=== PATIENT | male | born 1945 | race Caucasian/White ===

== ENCOUNTER 2018-11-29 22:14 | Inpatient (IN) ==
[2018-11-29] MEDS ORDERED: ASPIRIN PO ONE (22:28)
[2018-11-29] MEDS ORDERED: ASPIRIN PR ONE (22:28)
--- NOTE | 2018-11-29 22:48 | PROVIDER DOCUMENTATION ---
HPI-General Adult - General Chief Complaint: Shortness of Breath Stated Complaint: CHEST PAIN/SOB/ NECK PAIN Time Seen by Provider: 11/29/18 22:32 Source: patient Allergies/Adverse Reactions: Patient Allergies Allergy/AdvReac Type Severity Reaction Status Date / Time Penicillins Allergy Unknown Verified 08/23/18 10:37 Home Medications: Home Medication List Medication Instructions Recorded Confirmed Last Taken Type Aspirin 81 mg PO DAILY 02/14/15 08/23/18 10/09/16 History Atorvastatin Calcium [Lipitor] 20 mg PO DAILY #90 tab 08/26/18 Unknown Rx Fluticasone/Vilanterol [Breo 1 ea IH DAILY #1 aer.pow.ba 08/26/18 Unknown Rx Ellipta Inhaler] Levofloxacin [Levaquin] 500 mg PO DAILY #10 tab 08/26/18 Unknown Rx Methylprednisolone [Medrol Dosepak] 4 mg PO DIRECTED #1 pkg 08/26/18 Unknown Rx Phenylephrine/Acetaminophen/Cp 1 ea PO TID #30 tab 08/26/18 Unknown Rx [Norel Ad Tablet] Tiotropium [place] Inhaler 1 puff INH RTDAILY #30 inhaler 08/26/18 Unknown Rx [Spiriva] Azithromycin 250 mg PO DAILY 4 Days #4 tab 11/30/18 Unknown Rx Prednisone 40 mg PO DAILY 4 Days #4 tab 11/30/18 Unknown Rx - History of Present Illness -Gen Adult Nature of Presenting Problems: THIS IS A 73 YEAR OLD MALE WITH MEDICAL HISTORY OF COPD AND ALSO 3 VESSELS CABG CAME IN TODAY WITH MULTIPLE COMPLAINTS. 1. CHEST PAIN "SHARP" STARTED LAST WEEK. NOTHING MAKES IT WORSE. SITTING MAKES IT BETTER. STATES IT RADIATES TO THE BACK. 2. SOB STARTED THIS MORNING WITH WHITE PRODUCTIVE COUGH. Review of Systems - Adult - REVIEW OF SYSTEMS - ADULT ROS:: unobtainable per condition Constitutional: reports: no symptoms reported, see HPI Eyes: reports: no symptoms reported, see HPI Ears, Nose, Mouth & Throat: reports: no symptoms reported, see HPI Cardiovascular: reports: chest pain (SHAPR STARTED LAST WEEK) Respiratory: reports: cough, shortness of breath Gastrointestinal: reports: no symptoms reported, see HPI Genitourinary: reports: no symptoms reported, see HPI Musculoskeletal: reports: no symptoms reported, see HPI Integumentary: reports: no symptoms reported, see HPI Neurological: reports: no symptoms reported, see HPI Psychiatric: reports: no symptoms reported, see HPI Endocrine: reports: no symptoms reported, see HPI Hematologic/Lymphatic: reports: no symptoms reported, see HPI Allergic/Immunologic: reports: no symptoms reported, see HPI Past History - Adult - PAST MEDICAL HISTORY-ADULT Review of Records: reports: Old Records Reviewed Major Childhood Illnesses: reports: denies history Cardiovascular: reports: A-Fib, CAD, hyperlipidemia Respiratory: reports: COPD Gastrointestinal: reports: denies history Genitourinary: reports: denies history Musculoskeletal: reports: denies history Neurological: reports: denies history Endocrine/Immune: reports: denies history Other Conditions: reports: denies history - PRIOR SURGERIES/PROCEDURES Surgical/Procedure History: reports: CABG (04/2015), other (deviated septum) - IMMUNIZATION STATUS Childhood Immunizations: See Nurse Assessment Flu Vaccine: See Nurse Assessment - FAMILY HISTORY Family History: reviewed, not pertinent Physical Exam-General - PHYSICAL EXAM-ADULT Initial Vital Signs Reviewed: Yes - CONSTITUTIONAL General Appearance: appears well, alert, no apparent distress - EYES Eyes: PERRL/EOMI - HEAD, EARS, NOSE, MOUTH & THROAT HENMT: normocephalic/atraumatic, moist mucous membranes, normal ENT inspection - NECK Neck: non-tender, full range of motion, supple - RESPIRATORY Respiratory: chest non-tender, lungs clear, normal breath sounds, no pleuratic chest pain, no respiratory distress, no accessory muscle use - CARDIOVASCULAR Cardiovascular: normal peripheral pulses, regular rate, rhythm, no edema, no gallop, no JVD, no murmur - GASTROINTESTINAL (ABDOMEN) Abdominal Exam: normal bowel sounds, non tender, soft - MUSCULOSKELETAL Back Exam: normal inspection, no CVA tenderness, no vertebral tenderness Extremity: normal range of motion, non-tender, normal gait, normal inspection - SKIN Integumentary: normal color, normal turgor - NEUROLOGIC Neurologic: grossly normal - PSYCHIATRIC Psych/Mental Status: normal mood/affect, normal thought content, normal thought process, oriented x 3 Progress - PLAN OF CARE/RESULTS Progress/Plan/Lab Results: Vital Signs - 8 hr 11/29/18 22:21 Temperature 98.4 F Pulse Rate 93 H Respiratory Rate 24 Blood Pressure 138/64 O2 Sat by Pulse Oximetry 88 L Orders Category Date Time Status Cardiac Monitoring DIRECTED Care 11/29/18 22:29 Active Oxygen Therapy- ED Nursing DIRECTED Care 11/29/18 22:29 Active Saline Loc NOW Care 11/29/18 22:29 Active CHEST-2 VIEWS [RAD] Stat Exams 11/29/18 22:29 Ordered CBC WITH ELECTRONIC DIFF [HEME] Stat Lab 11/29/18 22:29 Uncollected CK PROFILE [SP CHEM] Stat Lab 11/29/18 22:29 Uncollected COMPREHENSIVE METABOLIC PANEL [CHEM] Stat Lab 11/29/18 22:29 Uncollected PRO B-NATRIURETIC PEPTIDE Stat Lab 11/29/18 22:29 Uncollected PROTIME WITH INR [COAG] Stat Lab 11/29/18 22:29 Uncollected PTT [COAG] Stat Lab 11/29/18 22:29 Uncollected TROPONIN T Stat Lab 11/29/18 22:29 Uncollected Aspirin Med 11/29/18 22:28 Discontinued 300 mg AL NOW ONE Aspirin Med 11/29/18 22:28 Discontinued 325 mg PO NOW ONE CP/SOB/Palp >45 yrs of Age Stat Oth 11/29/18 22:28 Ordered EKG [EKG] Stat Ther 11/29/18 22:29 Ordered Result Diagrams: 11/29/18 22:47 11/29/18 22:47 - REASSESSMENT Reassessment #1 Time Reassessed: 23:54 Status: other (STILL PENDING CXR.) Reassessment #2 Time Reassessed: 01:05 Status: other (PENDING REPEAT TROPONIN) Reassessment #3 Status: other (STILL PENDING TROPONIN; PER CHARGE NURSE, NOT DRAWN YET AND TECH WILL DRAW.) Reassessment #4 Time Reassessed: 02:14 Status: other (REPEAT TROP >2 H NEGATIAVE; [id number]. WILL TREAT WITH ZPACK AND STEROID FOR COPD.) - EKG 1 Time of EKG reading by physician:: 22:34 EKG Read and Signed by:: Mario Moise EKG Interpretation (*Must complete 3 of following elements*): Normal Rate: 86 Rhythm: NORMAL SINUS RHYTHM [place]: normal QRS: normal [place] Interval: normal ST Wave: normal 2 Time of EKG reading by physician:: 23:29 EKG Read and Signed by:: Mario Moise EKG Interpretation (*Must complete 3 of following elements*): Normal Rate: 80 Rhythm: NORMAL SINUS RHYTHM [place]: normal QRS: normal [place] Interval: normal ST Wave: normal Departure - Departure Date of Disposition Decision: 11/30/18 Time of Disposition Decision: 02:16 DIAGNOSIS: COPD exacerbation Disposition: HOME 01 Certified Medical Emergency: Emergent Condition: Stable Additional Freetext Instructions: ED Follow Up Instructions: You have been treated by a care provider in the Emergency Department. These instructions are being provided to you so you can have an understanding of how to care for yourself upon discharge. Upon discharge from the Emergency Department, you are responsible for making arrangements for follow-up care by a physician of your choice. Take all prescribed medications as directed. Return to the Emergency Department immediately for any new or worsening symptoms. You may call the Physician Referral phone number at [phone] to obtain a list of Physicians who are taking new patients. Prescriptions: Azithromycin 250 mg PO DAILY 4 Days #4 tab Prednisone 40 mg PO DAILY 4 Days #4 tab Referrals and Follow-Ups: Pankaj Nation MD [Primary Care Provider] - - Critical Care Note This patient required my direct & personal management of CC.: No Attestation - Physician/ NELLIE Attestation Patient care was provided by Advanced Practice Provider:: No The physician spent face to face time with patient:: Yes Advanced Practice Provider documentation review:: Supervising physician onsite and consulted in the evaluation and care of this patient. The physician did have a face to face encounter with the patient.
[2018-11-29] MEDS ORDERED: DUONEB (A & A) INH ONE (23:14)
[2018-11-29 23:19] LABS: BASO# 0.02 X1000 (0.0-0.2); BASO% 0.3 % (0.0-0.8); EOS# 0.21 X1000 (0.0-0.7); EOS% 2.9 % (0.0-10.0); HEMATOCRIT 49.5 % (42.0-52.0); HEMOGLOBIN 15.8 g/dL (14.0-18.0); IMM GRAN# 0.02 X1000 (0.0-0.04); IMM GRAN% 0.3 % (0.0-0.5); INR 0.93; LYMPH# 1.11 X1000 (1.2-3.4); LYMPH% 15.2 % (20.5-51.1); MCH 28.8 PG (27-31); MCHC 31.9 g/dL (33-37); MCV 90.2 FL (81-99); MONO# 0.76 X1000 (0.11-0.59); MONO% 10.4 % (1.7-9.3); MPV 11.1 FL (7.4-10.4); NEUT# 5.18 X1000 (1.4-6.5); NEUT% 70.9 % (42.2-75.2); PLT 86 X1000 (130-400); PROTIME 13.2 Seconds (11.0-16.0); RBC 5.49 XMIL (4.7-6.1); RDW 15.7 % (11.5-14.5)
[2018-11-29 23:20] LABS: PTT 30.3 Seconds (22.3-41.8)
[2018-11-29 23:33] LABS: AGAP 13; ALB/GLOB RATIO 1.3; ALKALINE PHOSPHATASE 44 U/L (32-122); BUN 11 mg/dL (8-22); CALCIUM 8.9 mg/dL (8.8-10.2); CHLORIDE 97 mmol/L (98-107); CK PROFILE 41 U/L (24-204); COSMO 271; CREATININE 0.6 mg/dL (0.7-1.2); ESTIMATED GFR > 60; GLUCOSE 128 mg/dL (70-104); GOT 15 U/L (10-34); GPT 14 U/L (10-44); POTASSIUM 3.9 mmol/L (3.5-5.1); SODIUM 135 mmol/L (136-145); TCO2 25 mmol/L (25-35); TOTAL BILIRUBIN 0.58 mg/dL (0.20-1.00)
[2018-11-29] MEDS ORDERED: NITROGLYCERIN SL PRN (23:34)
[2018-11-29] MEDS ORDERED: MORPHINE IV ONE (23:34)
[2018-11-30] MEDS ORDERED: DUONEB (A & A) INH ONE ×2 (01:51→03:39)
[2018-11-30] MEDS ORDERED: ZITHROMAX PO ONE (02:13)
[2018-11-30] MEDS ORDERED: PREDNISONE PO ONE (02:13)
[2018-11-30] MEDS ORDERED: NICODERM PATCH TD ONE (06:22)
--- NOTE | 2018-11-30 06:29 | Diag Imaging Result Doc PS360 ---
CHEST-1 VIEW - 11/29/2018 INDICATION: CP, SOB COMPARISON: 08/23/2018 FINDINGS: Stable sternotomy wires. Stable hazy opacity in the right midlung laterally. Stable increased markings in the lung bases suggesting mild scarring or fibrosis. Heart size is top normal. IMPRESSION: No change from prior. Electronically signed by Sebastien Arguelles 11/30/2018 6:26 AM
[2018-11-30] MEDS: DUONEB (A & A) INH SCH ×5 (07:30→23:55)
[2018-11-30] MEDS: ROCEPHIN 1 GM in NS 50 ML IV SCH (07:33)
[2018-11-30] MEDS ORDERED: ZOFRAN IV PRN (07:34)
--- NOTE | 2018-11-30 07:42 | EKG Report ---
Test Performed on : 11/29/2018 10:34:07 PM Test Reason : CP. SOB Blood Pressure : / mmHG Vent. Rate : 086 BPM Atrial Rate : 086 BPM P-R Int : 138 ms QRS Dur : 092 ms QT Int : 378 ms P-R-T Axes : 031 032 091 degrees QTc Int : 452 ms Normal sinus rhythm. Inferior infarct (cited on or before 13-FEB-2015) Abnormal ECG When compared with ECG of 24-AUG-2018 07:07, Questionable change in initial forces of Inferior leads Unconfirmed Result
--- NOTE | 2018-11-30 07:43 | EKG Report ---
Test Performed on : 11/29/2018 11:29:03 PM Test Reason : CP Blood Pressure : / mmHG Vent. Rate : 080 BPM Atrial Rate : 080 BPM P-R Int : 140 ms QRS Dur : 092 ms QT Int : 364 ms P-R-T Axes : 045 028 086 degrees QTc Int : 419 ms Normal sinus rhythm. Possible Inferior infarct , age undetermined Abnormal ECG No previous ECGs available Unconfirmed Result
[2018-11-30 08:21] LABS: BASO# 0.02 X1000 (0.0-0.2); BASO% 0.4 % (0.0-0.8); EOS# 0.02 X1000 (0.0-0.7); EOS% 0.4 % (0.0-10.0); HEMATOCRIT 48.8 % (42.0-52.0); HEMOGLOBIN 15.7 g/dL (14.0-18.0); IMM GRAN# 0.02 X1000 (0.0-0.04); IMM GRAN% 0.4 % (0.0-0.5); MCH 29.1 PG (27-31); MCHC 32.2 g/dL (33-37); MCV 90.4 FL (81-99); MONO# 0.28 X1000 (0.11-0.59); MONO% 5.6 % (1.7-9.3); MPV 10.8 FL (7.4-10.4); NEUT# 4.08 X1000 (1.4-6.5); NEUT% 81.2 % (42.2-75.2); PLT 113 X1000 (130-400); RDW 15.7 % (11.5-14.5); WBC 5.02 X1000 (4.8-10.8)
--- NOTE | 2018-11-30 08:29 | HISTORY AND PHYSICAL ---
PRIMARY CARE PROVIDER: Dr. Nation CHIEF COMPLAINT: Shortness of breath. HISTORY OF PRESENT ILLNESS: Mr. Pérez is a 73-year-old male with a past medical history most notable for COPD, coronary artery disease, nicotine dependence, and chronic sinus problems. The patient reports that on , he did have a sinus surgery with Dr. Santacruz. Secondary to this, he has been instructed not to take his aspirin until cleared by Dr. Santacruz. He was reportedly supposed to have an appointment with Dr. Santacruz today at 3:30 to have some nasal packing removed. The patient states that since , he has had worsening shortness of breath. The patient states this steadily progressed though last night, he states that he became very short of breath and felt like he could not catch his breath at all. He also has reported a productive cough with clear sputum, though he states he does keep the chronic cough and that this is only slightly worsened. The patient has also reported fever, body aches and chills. The patient also reported headache and blurry vision yesterday, though he states this has subsided at this time. He has reported some intermittent chest pain though states this has been ongoing for awhile. The patient states that the pain is sharp in nature and does begin when his shortness of breath worsens or he coughs. He states it does radiate into his back between his shoulder blades, though he is denying any chest pain at this time. He denies any abdominal pain, nausea, vomiting, or diarrhea. He denies any hematochezia or melena. He denies any dysuria or urinary frequency. He also denies any pain, numbness, tingling or swelling in extremities. Upon evaluation in the ER, the patient did not have elevated white blood cell count. Chemistries are pretty unremarkable. CK and troponins have been negative. EKG showed normal sinus rhythm at a rate of 80 with a QTC of 419, though chest x-ray did appear to have a hazy opacity in the right mid to lower lung. Upon auscultation, the patient did have expiratory wheezing noted in bilateral full zacarias. He also did have coarse rhonchi noted and did sound very tight. The patient does not normally wear oxygen at home and was only maintaining oxygen saturations on room air of 88%. This does improve with oxygen nasal cannula at 2 liters to 94%, though given his history, reported symptoms, as well as hypoxia, he will be admitted for further treatment and evaluation. REVIEW OF SYSTEMS: A 14-point review of systems was conducted with the patient and all were negative except for pertinent positives mentioned above in HPI. PAST MEDICAL HISTORY: 1. COPD. 2. Coronary artery disease, status post 3 vessel coronary artery bypass graft. 3. Depression. 4. Metabolic syndrome. 5. Gout. 6. Glucose intolerance. 7. Nicotine dependency. 8. Peripheral vascular disease with bilateral superficial small artery stenosis. 9. Vitamin B12 deficiency. 10.Chronic sinusitis. PAST SURGICAL HISTORY: 1. Uvulopalatopharyngoplasty. 2. Septoplasty. 3. Coronary artery bypass graft. 4. Right lung biopsy which was reportedly benign. 5. Right knee replacement. 6. Recent sinus surgery [address] Santacruz. SOCIAL HISTORY: The patient is and has been so for 30 years. His is an employee at [employer]. They do have 3 children. He does work with heating and cooling units. He lives in [place]. He does have a long history of smoking in which he smokes 1-1/2 to 2 packs per day for approximately 40 years. The patient states he previously used to drink beer though has not had any alcohol in 5 years. There is no reported history of illicit drug use. FAMILY HISTORY: Positive for his father dying of a myocardial infarction at 88. His mother of complications secondary to a broken hip. ALLERGIES: The patient reports allergy to penicillin. HOME MEDICATIONS: 1. Aspirin 81 mg p.o. daily. 2. Atorvastatin 20 mg p.o. nightly. 3. Breo Ellipta inhaler 1 puff inhaled daily. 4. Spiriva 1 puff inhaled daily. DIAGNOSTIC DATA/LABORATORY RESULTS: White blood cell count 7300, hemoglobin 15.8, hematocrit 49.5, platelet count 86. PT 13.2, INR 0.93, PTT 30.3. D-dimer is 0.57. Sodium 135, potassium 3.9, chloride 97, serum bicarb 25, BUN 11, creatinine 0.6 with a GFR greater than 60. Glucose 128, calcium 8.9. Liver function tests within normal limits. CK 41, troponin less than 0.01. ProBNP 238. Plasma lactate 1.1. EKG showed normal sinus rhythm at a rate of 80 with a QTC of 419. Chest x-ray was concerning for possible opacity in the left mid to lower lung though we are awaiting for official radiology over read. PHYSICAL EXAMINATION: VITAL SIGNS: Temperature 98.4, heart rate 67, respirations 20, blood pressure 133/75, oxygen saturation is 92% on nasal cannula at 2 liters. GENERAL: Mr. Pérez is a very pleasant 73-year-old male. He is resting on the ER stretcher. He is in no acute distress. He was awake, alert, and able to answer all questions appropriately. HEENT: Head is atraumatic, normocephalic. Pupils are equal, round and reactive to light. Oral mucosa is moist. Oropharynx clear. NECK: Supple. Trachea midline. CARDIOVASCULAR: The patient has normal S1 and S2. No murmurs, gallops or rubs appreciated. Regular rate and rhythm. PULMONARY: The patient has symmetrical chest expansion bilaterally. Lungs sounds in bilateral full zacarias did have expiratory wheezing noted as well as rhonchi. ABDOMEN: Soft, nontender, does not appear to be distended. The patient has a slightly protuberant abdomen noted. Bowel sounds were present in all four quadrants and were normoactive. EXTREMITIES: No cyanosis, clubbing or edema noted. Pulse, motor and sensory were intact in all extremities. Radial pulses and pedal pulses were 2+ bilaterally. Capillary refill is less than 3. INTEGUMENTARY: The patient's skin is pink, warm, and dry. NEUROLOGIC: The patient is alert and oriented to person, place, time, and situation. There does not appear to be focal neurological deficits noted. ASSESSMENT AND PLAN: 1. Chronic obstructive pulmonary disease exacerbation. For treatment of this, we will place the patient with scheduled DuoNeb treatments. We will implement IV steroids with Solu-Medrol 40 mg IV q.12 hours. We have gone ahead and placed the patient with antibiotic coverage of Rocephin and azithromycin given his reported symptoms of shortness of breath, cough, as well as fever, body aches, and chills. Blood cultures and sputum culture have been ordered. Will continue with aggressive pulmonary toilet, incentive spirometry, and oxygen supplementation. Will continue to monitor respiratory status closely. 2. Status post sinus surgery with Dr. Santacruz 4 days ago. The patient does reportedly have an appointment today with Dr. Santacruz at 3:30 for removal of some nasal packing. He has reported that he has also been using a nasal spray and that the drainage has been clear though did have an odor. Given this, we will continue with antibiotic as mentioned above of Rocephin given that he has reported fever, body aches and chills. We will continue to hold his aspirin at this time until he is cleared with Dr. Santacruz. We have placed a consult with Dr. Santacruz and will await his evaluation and further recommendations for management. 3. Coronary artery disease, status post coronary artery bypass graft. We are holding his aspirin at this time but once he is cleared by Dr. Santacruz, we can restart his regular aspirin regimen. 4. Nicotine dependence. The patient has been given smoking cessation teaching. We will continue to provide smoking cessation education throughout his admission and upon discharge. We have placed orders for a nicotine patch. 5. Deep venous thrombosis prophylaxis will be provided with sequential compression devices. The patient has been placed on the medical floor with telemetry. He will have vital signs q.6 hours and do strict intake and output, incentive spirometry. He will be on a heart healthy diet. Will repeat a CBC, BMP, and troponin in the morning. The patient's D-dimer was slightly elevated at 0.57 though according to the Wells score for pulmonary embolism, he only scores a 1.5 given his recent history of surgery. We will continue to follow. Further orders and recommendations pending hospital course, diagnostic studies , and physician evaluation. Dictated by SERENA Dixon for Travon Ernst MD cc: Travon Ernst MD
[2018-11-30 08:38] LABS: AGAP 10; BUN 9 mg/dL (8-22); CALCIUM 8.8 mg/dL (8.8-10.2); CHLORIDE 98 mmol/L (98-107); COSMO 271; CREATININE 0.6 mg/dL (0.7-1.2); ESTIMATED GFR > 60; GLUCOSE 135 mg/dL (70-104); POTASSIUM 4.5 mmol/L (3.5-5.1); SODIUM 135 mmol/L (136-145); TCO2 27 mmol/L (25-35)
[2018-11-30] MEDS ORDERED: NITROGLYCERIN TOP ONE (08:59)
[2018-11-30] MEDS ORDERED: ASPIRIN PO SCH (09:00)
[2018-11-30] MEDS ORDERED: ASPIRIN ONE (09:06)
[2018-11-30] MEDS: BREO ELLIPTA 100/25 MCG INH INH SCH (11:35)
[2018-11-30] MEDS: SOLU-MEDROL IV SCH (13:48)
[2018-11-30] MEDS: TORADOL IV PRN (15:59)
[2018-11-30] MEDS: LIPITOR PO SCH (20:20)
[2018-12-01] MEDS: SOLU-MEDROL IV SCH ×2 (01:39→13:16)
[2018-12-01] MEDS: ZITHROMAX 500 MG/NS 500 MG/250 ML IVPB IV SCH (01:39)
[2018-12-01] MEDS: DUONEB (A & A) INH SCH ×6 (03:22→23:20)
[2018-12-01] MEDS: TORADOL IV PRN ×3 (06:17→20:02)
[2018-12-01] MEDS: ROCEPHIN 1 GM in NS 50 ML IV SCH (06:17)
[2018-12-01] MEDS: SPIRIVA INH SCH (07:57)
[2018-12-01] MEDS: BREO ELLIPTA 100/25 MCG INH INH SCH (07:59)
[2018-12-01] MEDS: ASPIRIN PO SCH (08:55)
[2018-12-01] MEDS: MAXIPIME 1 GM in NS 50 ML IV SCH ×2 (09:33→20:03)
[2018-12-01] MEDS: AYR NASAL SPRAY NAS SCH ×7 (10:31→22:45)
[2018-12-01] MEDS: NICODERM PATCH TD SCH (14:18)
--- NOTE | 2018-12-01 19:29 | PROGRESS NOTE ---
DATE: 12/01/2018 SUBJECTIVE: A 73-year-old white male admitted to the hospital yesterday for shortness of breath, cough, wheezing, interscapular pain. The patient is well known to me from the previous admissions. Events noted. I appreciate Dr. Santacruz's follow-up. He performed sinus surgery, grew Pseudomonas. It is sensitive to all cephalosporins. PAST MEDICAL HISTORY: Reviewed. PAST SURGICAL HISTORY: Reviewed. MEDICINES: Reviewed. ALLERGIES: Penicillin. REVIEW OF SYSTEMS: Cough shortness of breath, and wheezing. Rest of the review of systems are normal. PHYSICAL EXAMINATION: Vital Signs: Temperature is 98 degrees, pulse is 89, blood pressure is 124 x 60. 3 L nasal cannula 94%. HEENT: Within normal limits. Neck: Supple. No lymphadenopathy. Chest: Bilateral expiratory wheezing. Heart: Sounds are regular. Abdomen: Belly is soft, nontender. No obvious neurological deficits. INVESTIGATIONS: CBC: White cell count 5, hematocrit 48, platelets 113,000. SMA 7 is normal and cardiac enzymes were negative. ProBNP was normal. ASSESSMENT AND PLAN: 1. Acute chronic obstructive pulmonary disease exacerbation. Plan is continue on oxygen, bronchodilators. Intravenous steroids. 2. Tobacco abuse. Nicotine patch. 3. Interscapular pain. EKG is normal. Status post bypass. Cardiac enzymes were negative. Continue on Toradol as needed. 4. Hyperlipidemia on Lipitor and continue on aspirin for underlying coronary artery disease. 5. Acute maxillary sinusitis. Status post sinus surgery with Pseudomonas. Change the antibiotics to IV cefepime and will reassess for the evaluation for home oxygen. 6. Nicotine cessation programs. 7. Right lower lobe spiculated lesion. Previous biopsy was negative. We will continue to monitor with outpatient PET scan if things do not get better. LEVEL OF DOCUMENTATION: 35 minutes. cc: Blake Nation MD
[2018-12-01] MEDS: LIPITOR PO SCH (20:01)
[2018-12-02] MEDS: AYR NASAL SPRAY NAS SCH ×12 (01:44→22:45)
[2018-12-02] MEDS: ZITHROMAX 500 MG/NS 500 MG/250 ML IVPB IV SCH (01:44)
[2018-12-02] MEDS: SOLU-MEDROL IV SCH ×2 (01:44→14:12)
[2018-12-02] MEDS: DUONEB (A & A) INH SCH ×6 (03:12→23:38)
[2018-12-02] MEDS: TORADOL IV PRN ×4 (04:23→22:18)
[2018-12-02] MEDS: SPIRIVA INH SCH (07:33)
[2018-12-02] MEDS: BREO ELLIPTA 100/25 MCG INH INH SCH (07:33)
[2018-12-02] MEDS: NICODERM PATCH TD SCH (09:49)
[2018-12-02] MEDS: MAXIPIME 1 GM in NS 50 ML IV SCH ×2 (09:49→20:05)
[2018-12-02] MEDS: ASPIRIN PO SCH (09:49)
--- NOTE | 2018-12-02 10:12 | Diag Imaging Result Doc PS360 ---
C-SPINE COMPLET FLEX/EXTENSION - 12/02/2018 INDICATION: neck pain TECHNIQUE: Three views COMPARISON: None FINDINGS: There is no fracture or subluxation. There is some sort of amorphous dense material projecting in the precervical soft tissue at the level of the epiglottis. There is mild multilevel degenerative disc disease. No abnormal motion on flexion or extension. IMPRESSION: Nonspecific findings. Electronically signed by Sebastien Arguelles 12/02/2018 10:10 AM
[2018-12-02] MEDS: MIRALAX PO SCH (10:36)
--- NOTE | 2018-12-02 20:01 | PROGRESS NOTE ---
DATE: 12/02/2018 SUBJECTIVE: Patient has complaints of left interscapular pain. Sputum cultures grew Pseudomonas aeruginosa. PHYSICAL EXAMINATION: Vital Signs: Temp is 98. Vitals are stable. HEENT: Within normal limits. Neck: Supple. Chest: Clear. Lungs: Scattered wheezing. Cardiovascular: Distant heart sounds. Abdomen: Belly is soft, nontender. Neurologic: No neurological deficits. INVESTIGATIONS: Sputum Pseudomonas aeruginosa. Blood cultures were negative. ASSESSMENT AND PLAN: 1. Acute chronic obstructive pulmonary disease exacerbation due to Pseudomonas bronchitis and sinusitis. Continue on IV cefepime, IV steroids and bronchodilators. 2. Left interscapular pain. We will check the x-rays of C-spine. 3. Right lung opacity, spiculated lesion. Previous biopsy negative. 4. Tobacco abuse, quit smoking. Continue present treatment. LEVEL OF DOCUMENTATION: 25 minutes. cc: Blake Nation MD
[2018-12-02] MEDS: LIPITOR PO SCH (20:05)
[2018-12-03] MEDS: AYR NASAL SPRAY NAS SCH ×12 (00:45→23:51)
[2018-12-03] MEDS: ZITHROMAX 500 MG/NS 500 MG/250 ML IVPB IV SCH (02:09)
[2018-12-03] MEDS: SOLU-MEDROL IV SCH ×2 (02:09→15:40)
[2018-12-03] MEDS: DUONEB (A & A) INH SCH ×6 (03:33→23:00)
[2018-12-03] MEDS: TORADOL IV PRN ×2 (05:17→11:56)
[2018-12-03] MEDS: MIRALAX PO SCH (08:18)
[2018-12-03] MEDS: ASPIRIN PO SCH (08:18)
[2018-12-03] MEDS: MAXIPIME 1 GM in NS 50 ML IV SCH ×2 (08:18→22:21)
[2018-12-03] MEDS: NICODERM PATCH TD SCH (08:18)
[2018-12-03] MEDS: BREO ELLIPTA 100/25 MCG INH INH SCH (08:36)
[2018-12-03] MEDS: SPIRIVA INH SCH (08:36)
--- NOTE | 2018-12-03 09:28 | Diag Imaging Result Doc PS360 ---
EXAM: CT THORAX W/CONTRAST 12/03/2018 HISTORY: right Lower lobe spiculated lesion TECHNIQUE: This exam was performed using automated exposure control, adjustment of mA or kV according to patient size, and/or use of iterative reconstruction technique. COMMENT: The current examination is compared with the previous study of 12/01/2017. There is severe emphysematous change. The spiculated somewhat cavitary lesion present in the lower portion of the right upper lobe which was described at the time the previous examination is again noted. This is slightly larger in some dimensions than on the previous examination, although comparison is difficult due to differences in slice position and the irregular shape of the mass. The greatest axial extent is measured at 2.9 cm versus just under 2.9 cm on the previous examination. A short axis dimension of a posterior lobe of the lesion measures almost 11 mm on the current study versus 9 mm on the previous exam. There are some linear opacities in the inferior portion of the upper lobe anteriorly which were not present previously and are probably related to atelectasis. There are some similar opacities in the inferior lingula which were present previously and are likely fibrotic. There are linear opacities in both lower lobes posteriorly the majority of which were not present previously and are probably also atelectatic. There is a somewhat flat pleural-based opacity posteriorly in the left apex around image 26. There is a more nodular lesion on the previous examination, and there is some apparent enhancement within this area of pleural thickening or pleural-based opacity. It is at least 2.5 cm in axial dimension. The appearance of the mediastinum and obi has not changed significantly since the previous examination. The adrenal glands are not enlarged and the appearance of the visualized portion of the abdomen has not changed. There are spondylotic changes in the lumbar and thoracic spine. There has been previous sternotomy. IMPRESSION: 1. Right upper lobe irregular spiculated lesion which has not increased dramatically in size since the previous examination of 12/01/2017. Some increase in overall volume cannot be excluded however. 2. Enlarged pleural-based lesion in the posterior left apex. 3. Bibasilar atelectasis. Electronically signed by Marlon Demarco 12/03/2018 9:25 AM
[2018-12-03] MEDS: DILAUDID IV PRN ×2 (18:05→22:33)
[2018-12-03] MEDS: LIPITOR PO SCH (22:21)
--- NOTE | 2018-12-04 00:04 | PROGRESS NOTE ---
DATE: 12/03/2018 SUBJECT: The patient complains of intractable left interscapular pain x-ray C-spine spondylosis and continues to cough and congestion. Sputum cultures grew Pseudomonas aeruginosa. Blood cultures were negative. OBJECTIVE: Temperature is 98 degrees, vitals are stable.HEENT: Within normal limits. Neck: Supple. No lymphadenopathy. Chest: Air entry, some pleurisy on the left side noted. Heart: Sounds are regular. Belly: Is soft, nontender. No obvious neurological deficits. ASSESSMENT AND PLAN: 1. Acute chronic obstructive pulmonary disease exacerbation with Pseudomonas aeruginosa. Continue on IV cefepime. 2. Left interscapular pain. Followup CT of the chest showed 2.4 cm mass pleural based noted and will schedule for CT-guided biopsy on Thursday. 3. Tobacco abuse. Nicotine patches. 4. Coronary artery disease stable. Discussed the plan of care with the family at bedside. LEVEL OF DOCUMENTATION: 25 minutes. cc: Blake Nation MD
[2018-12-04] MEDS: ZITHROMAX 500 MG/NS 500 MG/250 ML IVPB IV SCH (03:14)
[2018-12-04] MEDS: SOLU-MEDROL IV SCH ×2 (03:14→14:53)
[2018-12-04] MEDS: DILAUDID IV PRN ×6 (03:14→22:01)
[2018-12-04] MEDS: DUONEB (A & A) INH SCH ×6 (03:30→23:10)
[2018-12-04] MEDS: AYR NASAL SPRAY NAS SCH ×9 (05:15→17:59)
[2018-12-04] MEDS: SPIRIVA INH SCH (08:07)
[2018-12-04] MEDS: BREO ELLIPTA 100/25 MCG INH INH SCH (08:07)
[2018-12-04] MEDS: MAXIPIME 1 GM in NS 50 ML IV SCH ×2 (08:39→22:02)
[2018-12-04] MEDS: ASPIRIN PO SCH (08:39)
[2018-12-04] MEDS: NICODERM PATCH TD SCH (08:39)
[2018-12-04] MEDS: MIRALAX PO SCH (08:39)
--- NOTE | 2018-12-04 12:38 | PROGRESS NOTE ---
DATE: 12/04/2018 SUBJECTIVE: Mr. Pérez is a 73-year-old white gentleman, who has some shortness of breath. His sputum grew Pseudomonas. He is on cefepime, steroids, as well as azithromycin IV. He has right apical lesion and left pleural basilar lesion. Overall condition is unchanged. We are going to continue the current management on Mr. Pérez. -0 cc: MD Blake Cast MD
[2018-12-04] MEDS: LIPITOR PO SCH (22:03)
[2018-12-05] MEDS: AYR NASAL SPRAY NAS SCH ×10 (02:30→19:00)
[2018-12-05] MEDS: ZITHROMAX 500 MG/NS 500 MG/250 ML IVPB IV SCH (02:31)
[2018-12-05] MEDS: SOLU-MEDROL IV SCH ×2 (02:32→14:23)
[2018-12-05] MEDS: DILAUDID IV PRN ×5 (02:37→20:48)
[2018-12-05] MEDS: DUONEB (A & A) INH SCH ×6 (04:04→23:10)
[2018-12-05] MEDS: BREO ELLIPTA 100/25 MCG INH INH SCH (07:47)
[2018-12-05] MEDS: SPIRIVA INH SCH (07:47)
[2018-12-05] MEDS: NICODERM PATCH TD SCH (09:18)
[2018-12-05] MEDS: MIRALAX PO SCH (09:18)
[2018-12-05] MEDS: MAXIPIME 1 GM in NS 50 ML IV SCH ×2 (09:18→20:47)
[2018-12-05] MEDS: ASPIRIN PO SCH (09:18)
--- NOTE | 2018-12-05 13:57 | PROGRESS NOTE ---
DATE: 12/05/2018 Mr. Pérez has been on cefepime and azithromycin lungs sound clear. His vital signs are stable. He is going to have the aspiration biopsy tomorrow -2 cc: MD Blake Cast MD
[2018-12-05] MEDS: LIPITOR PO SCH (20:48)
[2018-12-06] MEDS: DILAUDID IV PRN ×5 (00:45→23:09)
[2018-12-06] MEDS: AYR NASAL SPRAY NAS SCH ×10 (00:46→16:52)
[2018-12-06] MEDS: ZITHROMAX 500 MG/NS 500 MG/250 ML IVPB IV SCH (02:26)
[2018-12-06] MEDS: SOLU-MEDROL IV SCH ×2 (02:26→13:51)
[2018-12-06] MEDS: DUONEB (A & A) INH SCH ×6 (03:50→23:40)
--- NOTE | 2018-12-06 08:00 | Diag Imaging Result Doc PS360 ---
EXAM: CHEST-2 VIEWS HISTORY: follow up TECHNIQUE: Chest two views COMPARISON: 11/29/2018 FINDINGS: Improved inspiratory effort compared to the prior study. Atelectasis versus small infiltrates remain in the lung bases, left greater than right. Findings are less prominent than on the prior study. The heart is not enlarged. Sternal wires are present. There are scattered granuloma. No pleural effusions. IMPRESSION: Mild interval improvement. Electronically signed by Ramy Todd 12/06/2018 7:57 AM
[2018-12-06] MEDS: SPIRIVA INH SCH (08:21)
[2018-12-06] MEDS: BREO ELLIPTA 100/25 MCG INH INH SCH (08:21)
[2018-12-06] MEDS: MIRALAX PO SCH (10:06)
[2018-12-06] MEDS: ASPIRIN PO SCH (10:06)
[2018-12-06] MEDS: NICODERM PATCH TD SCH (10:07)
[2018-12-06] MEDS: MAXIPIME 1 GM in NS 50 ML IV SCH ×2 (10:24→23:13)
--- NOTE | 2018-12-06 21:45 | PROGRESS NOTE ---
DATE: 12/06/2018 SUBJECTIVE: The patient is still intractable left-sided upper back pain. I did arrange with Dr. Healy for dual CT-guided left upper lobe biopsy. Dr. Arguelles canceled the test due to high risk and repeat the CT in 3 months. Family wants to do the biopsy because of ongoing pain. The lesion in the right lower lobe is not changed. Family is somewhat not happy. PHYSICAL EXAMINATION: Vital Signs: Temperature is 97. Vitals are stable. HEENT: Within normal limits. Neck: Supple. Chest: Clear. Cardiovascular: Heart sounds are regular. Abdomen: Belly is soft, nontender. Good bowel sounds. Neurologic: No obvious neurological deficits. ASSESSMENT AND PLAN: 1. Acute chronic obstructive pulmonary disease exacerbation due to Pseudomonas aeruginosa. Continue oxygen, IV cefepime, IV steroids. 2. Tobacco abuse. Nicotine cessation program. 3. Coronary artery disease status post bypass surgery. Continue aspirin and Lipitor. 4. Left interscapular pain due to 2.5 cm mass on the upper lobe hitting intercostal nerve. We will repeat the biopsy with Dr. Healy at his schedule and also will consult Dr. Corona for second opinion and continue present medical therapy. LEVEL OF DOCUMENTATION: 25 minutes. cc: Blake Nation MD
[2018-12-06] MEDS: LIPITOR PO SCH (23:13)
[2018-12-07] MEDS: ZITHROMAX 500 MG/NS 500 MG/250 ML IVPB IV SCH (03:31)
[2018-12-07] MEDS: SOLU-MEDROL IV SCH ×2 (03:31→14:20)
[2018-12-07] MEDS: AYR NASAL SPRAY NAS SCH ×13 (03:31→21:01)
[2018-12-07] MEDS: DUONEB (A & A) INH SCH ×6 (03:39→23:00)
[2018-12-07] MEDS: DILAUDID IV PRN ×6 (03:43→21:52)
[2018-12-07] MEDS: SPIRIVA INH SCH (08:13)
[2018-12-07] MEDS: BREO ELLIPTA 100/25 MCG INH INH SCH (08:13)
--- NOTE | 2018-12-07 08:50 | HEMO/ONC CONSULTATION ---
DATE: 12/07/2018 CHIEF COMPLAINT: We were consulted for further evaluation of lung nodule. HISTORY OF PRESENT ILLNESS: Mr. Pérez is a 73-year-old male who came to the emergency department on 11/29/2018 complaining of increased shortness of breath with productive cough with white sputum. The patient also complained of sharp pain to left side of chest that radiates to his back. The patient recently had sinus surgery with Dr. Santacruz. Since he had his surgery, this is when the shortness of breath started. It progressively got worse. The patient did complain of having some fever, body aches, and chills as well. The patient said he also had some headache, blurry vision, but has improved. The patient was admitted. The patient had a chest x-ray while in the emergency department that did show an opacity in the right mid to lower lung. The patient had expiratory wheezing as well. The patient was admitted at that time for further evaluation and treatment. Since the patient has been admitted, he had a CT of the chest that showed right upper lobe irregular spiculated lesion that was there on previous exam and it was very slightly increased in size since a year ago in November 2017. He also had an enlarged pleural based lesion in the posterior left apex and bibasilar atelectasis. PAST MEDICAL HISTORY: 1. COPD. 2. Coronary artery disease, status post coronary artery bypass. 3. Depression. 4. Metabolic syndrome. 5. Gout. 6. Glucose intolerance. 7. Nicotine dependency. 8. Peripheral vascular disease. 9. Vitamin B12 deficiency. 10.Chronic sinusitis. PAST SURGICAL HISTORY: 1. Uvulopalatopharyngoplasty. 2. Septoplasty. 3. Coronary bypass graft. 4. Right lung biopsy. 5. Right knee replacement. 6. Recent sinus surgery. SOCIAL HISTORY: He continues to smoke 1-1/2 to 2 packs per day. No alcohol or illicit drug use. FAMILY HISTORY: Myocardial infarction. ALLERGIES: Penicillin. HOME MEDICATIONS: 1. Aspirin. 2. Atorvastatin. 3. Breo Ellipta inhaler. 4. Spiriva. REVIEW OF SYSTEMS: Negative other than mentioned in HPI. PHYSICAL EXAMINATION: Vital Signs: Temperature 97.7, heart rate 61, respiratory rate 16, blood pressure 126/75, saturating 95% on nasal cannula. General: The patient is awake , lying in bed. No acute distress noted. HEENT: Anicteric. PERRLA. Mucous membranes moist. Neck: Supple. Trachea midline. No JVD. Lymph node survey: No palpable lymphadenopathy. Cardiovascular: S1, S2. Regular rate and rhythm. Chest: Bilateral breath sounds, diminished bilaterally. Abdomen: Soft, nontender. Bowel sounds present in all 4 quadrants. Skin: Warm, dry, and intact. No petechiae, no clubbing, no rashes, no cyanosis. Neurological: Awake, alert, and oriented x3. No focal deficits noted. LABORATORY DATA: Labs last drawn on 11/30/2018. White blood cell count 5.02, hemoglobin 15.7, hematocrit 48.8, platelets 113. Potassium 4.5, BUN 9, creatinine 0.6. ASSESSMENT AND PLAN: 1. Lung nodule: The patient will go for a CT-guided biopsy to evaluate the lung nodule. Once we get those results back, we can make further recommendations based on the pathology results. Will continue to monitor closely. 2. Acute chronic obstructive pulmonary disease exacerbation: Continue recommendations by primary medical team. 3. Tobacco abuse: Nicotine cessation education provided. 4. Coronary artery disease, status post bypass surgery: Continue recommendations by primary medical team. Dictated by SERENA Sanders for Xavier Corona MD Patient seen and examined. Patient complains of moderate to severe left periscapular pain. CT scan reveals a pleural-based left lung lesion in this area. He also has a spiculated nodule in the right upper lobe that is minimally enlarged compared to his prior CT scan a year ago. He just underwent CT-guided biopsy of this left pleural-based nodule. Follow-up on pathology. We will schedule him for a PET scan outpatient. Plan further management accordingly. Xavier Corona M.D. cc: SERENA Sanders MD Jagan Reddy, MD MTDD
[2018-12-07 09:06] LABS: INR 0.98; PROTIME 13.8 Seconds (11.0-16.0)
[2018-12-07] MEDS: NICODERM PATCH TD SCH (10:05)
[2018-12-07] MEDS: MAXIPIME 1 GM in NS 50 ML IV SCH ×2 (10:06→20:50)
[2018-12-07] MEDS: ASPIRIN PO SCH (12:49)
[2018-12-07] MEDS: MIRALAX PO SCH (12:49)
--- NOTE | 2018-12-07 12:53 | Diag Imaging Result Doc PS360 ---
EXAM: CHEST-2 VIEWS 12/07/2018 HISTORY: POST BIOPSY TECHNIQUE: Inspiratory expiratory chest COMMENT: Considering differences in technique there has been no significant change since 12/06/2018. There is no evidence of significant pneumothorax. IMPRESSION: No evidence of pneumothorax or hemothorax. Electronically signed by Marlon Demarco 12/07/2018 12:51 PM
--- NOTE | 2018-12-07 12:55 | Diag Imaging Result Doc PS360 ---
EXAM: CT GUIDED BIOPSY LUNG 12/07/2018 HISTORY: Left Upper Lobe Biopsy TECHNIQUE: CT-guided biopsy of the left posterior apex COMMENT: The pleural-based mass/thickening present in the posterior left upper lobe was localized with CT and following sterile preparation the skin and administration 1% lidocaine to the skin and deeper soft tissues a 20-gauge coaxial Temno core biopsy needle was employed to obtain three cores. There are no immediate complications. Prior to the procedure the risks and benefits of the procedure including the possibility of pneumothorax, bleeding, infection, or reaction to lidocaine were discussed with the patient and he agreed to the procedure. There are no immediate complications. IMPRESSION: Successful CT-guided biopsy of the left upper lobe. Electronically signed by Marlon Demarco 12/07/2018 12:53 PM
--- NOTE | 2018-12-07 15:41 | Diag Imaging Result Doc PS360 ---
EXAM: CHEST-2 VIEWS HISTORY: imp and exp, post ct biopsy TECHNIQUE: Inspiratory and expiratory chest two views COMPARISON: 12:14 PM FINDINGS: No postprocedural pneumothorax. No change in the appearance of the chest since the films taken earlier. Electronically signed by Ramy Todd 12/07/2018 3:39 PM
[2018-12-07] MEDS: LIPITOR PO SCH (20:50)
--- NOTE | 2018-12-07 22:54 | PROGRESS NOTE ---
DATE: 12/07/2018 SUBJECTIVE: I coordinated with Dr. Demarco to do the CT-guided biopsy in the left upper lobe. The patient is in a lot of pain. Appreciated Radiology input, as well as Dr. Corona. Dr. Corona is going to arrange outpatient PET scan. Biopsy is still pending. CEA level slightly high. PT/INR is normal. Blood cultures were negative. Followup chest x-ray after the biopsy: No pneumothorax noted. The patient is in still a lot of pain. is at bedside. The patient was seen twice. PHYSICAL EXAMINATION: Vital Signs: Temperature is 98 degrees, pulse is 72, blood pressure 126/54. HEENT: Within normal limits. Neck: Supple. Chest: Clear. Heart: Sounds are regular. Abdomen: Belly is soft, nontender. ASSESSMENT AND PLAN: 1. Acute chronic obstructive pulmonary disease exacerbation, improving. Check his room air blood gas, as well as pulse oximetry for home oxygen evaluation. 2. Tobacco abuse. Quit smoking. 3. Pseudomonas aeruginosa infection in the sputum, as well as the sinusitis. Continue on IV cefepime and bronchodilators. 4. Coronary artery disease, stable. 5. Left upper lobe pleural-based mass. Follow up on histology findings, as well as outpatient workup as per Dr. Corona. 6. Findings were discussed with the patient. I appreciate all the consultants' followup. LEVEL OF DOCUMENTATION: 25 minutes. cc: Blake Nation MD
[2018-12-08] MEDS: DILAUDID IV PRN ×6 (02:34→22:36)
[2018-12-08] MEDS: SOLU-MEDROL IV SCH ×2 (02:37→15:13)
[2018-12-08] MEDS: AYR NASAL SPRAY NAS SCH ×11 (02:37→22:47)
[2018-12-08] MEDS: ZITHROMAX 500 MG/NS 500 MG/250 ML IVPB IV SCH (02:41)
[2018-12-08] MEDS: DUONEB (A & A) INH SCH ×6 (03:24→23:30)
[2018-12-08] MEDS: MIRALAX PO SCH (08:02)
[2018-12-08] MEDS: ASPIRIN PO SCH (08:03)
[2018-12-08] MEDS: NICODERM PATCH TD SCH (08:03)
[2018-12-08] MEDS: MAXIPIME 1 GM in NS 50 ML IV SCH ×2 (08:03→22:39)
[2018-12-08] MEDS ORDERED: MILK OF MAGNESIA PO PRN (08:13)
--- NOTE | 2018-12-08 08:29 | HEMO/ONC PROGRESS NOTE ---
DATE: 12/08/2018 SUBJECTIVE: The patient continues to have pain to the left side of chest and left scapular region. The patient denies any other complaints at this time. Shortness breath is slowly improving. OBJECTIVE: Vital Signs: Temperature 98.0, heart rate 63, respiratory rate 20, blood pressure 112/65, saturating 95% on nasal cannula. General: Patient is awake, lying in bed. HEENT: Anicteric. Pupils PERRLA. Mucous membranes appear to be moist. Chest: Bilateral breath sounds, clear to auscultation. Abdomen: Soft, nontender. Bowel sounds present in all 4 quadrants. Neurologic: Alert and oriented x3. No focal deficits noted. ASSESSMENT AND PLAN: 1. Pleural-based left lung lesion: The patient had CT-guided biopsy yesterday. Pathology results pending. The patient will follow up as an outpatient to get PET scan and to go over pathology results. Continue to monitor at this time. 2. Acute chronic obstructive pulmonary disease. Shortness of breath continues to improve. Continue recommendation by primary medical team. 3. Pseudomonas aeruginosa infection in the sputum. Continue IV antibiotics as ordered by primary medical team. 4. Nicotine cessation education performed. Dictated by SERENA Sanders for Xavier Corona MD Patient seen and examined. He status post CT-guided biopsy. He tolerated the procedure very well. Pathology is pending. I will schedule him for a PET scan outpatient and see him back for further management. I will sign off at this time. Please call with any questions or concerns. Xavier Corona M.D. cc: MD Blake Wheeler MD [facility]
[2018-12-08] MEDS: BREO ELLIPTA 100/25 MCG INH INH SCH (09:15)
[2018-12-08] MEDS: SPIRIVA INH SCH (09:16)
[2018-12-08 11:18] LABS: ALLEN TEST YES; BE 5.5 mmoll (-3.0-3.0); BLOOD TYPE ARTERIAL; HCO3-(ACT) 28.9 mmoll (20.0-26.0); METHB 1.1 % (0.0-1.5); O2(CT) 20.4 mL/dL (15.0-23.0); PCO2(98.6) 50 mmHg (35-45); PO2(98.6) 55 mmHg (60-100); SAMPLE BLOOD; SAO2 90.5 % (95.0-100.0); THB 16.6 g/dL (11.5-17.4); pH(98.6) 7.41 (7.35-7.45)
[2018-12-08 11:20] LABS: MODALITY ROOM AIR; O2HB 87.6 % (95.0-99.0)
[2018-12-08] MEDS: LIPITOR PO SCH (22:41)
--- NOTE | 2018-12-09 01:15 | PROGRESS NOTE ---
DATE: 12/08/2018 SUBJECTIVE: The patient had a CT-guided biopsy. Scheduled for outpatient PET scan. I went to Dr. Penaloza's office. Results are pending. The patient is still coughing up bloody sputum. Discussed with the patient, as well as the nurse at bedside about evaluation of home oxygen. PHYSICAL EXAMINATION: Vital Signs: Temperature is 97 degrees, pulse is 64, blood pressure 130/69. Chest: No wheezing. Heart: Sounds are regular. ASSESSMENT AND PLAN: 1. Chronic obstructive pulmonary disease, with Pseudomonas bronchitis, on IV cefepime. Started on 12/01/2018. 2. Discontinue oxygen. Evaluate for home oxygen. Repeat the blood gas. PO2 was 55. We will arrange home oxygen. 3. Follow up on pathology finding on the left upper lobe pleural-based lesion by CT-guided biopsy, with Dr. Penaloza. 4. Outpatient PET scan. 5. Nicotine patches for nicotine cessation programs. Continue bronchodilators. Will make the coordination care between Dr. Corona and Dr. Penaloza and the family. Discussions were made twice. LEVEL OF DOCUMENTATION: 25 minutes. cc: Blake Nation MD
[2018-12-09] MEDS: ZITHROMAX 500 MG/NS 500 MG/250 ML IVPB IV SCH (01:53)
[2018-12-09] MEDS: DILAUDID IV PRN ×7 (01:54→21:41)
[2018-12-09] MEDS: SOLU-MEDROL IV SCH ×2 (01:54→15:33)
[2018-12-09] MEDS: AYR NASAL SPRAY NAS SCH ×9 (01:55→20:45)
[2018-12-09] MEDS: DUONEB (A & A) INH SCH ×6 (03:52→23:00)
[2018-12-09] MEDS: BREO ELLIPTA 100/25 MCG INH INH SCH (08:12)
[2018-12-09] MEDS: SPIRIVA INH SCH (08:12)
[2018-12-09] MEDS: ASPIRIN PO SCH (09:10)
[2018-12-09] MEDS: MAXIPIME 1 GM in NS 50 ML IV SCH ×2 (09:10→21:45)
[2018-12-09] MEDS: NICODERM PATCH TD SCH (09:11)
[2018-12-09] MEDS: MIRALAX PO SCH (11:53)
[2018-12-09] MEDS ORDERED: AMBIEN PO PRN (19:17)
[2018-12-09] MEDS: LIPITOR PO SCH (22:02)
--- NOTE | 2018-12-09 22:12 | PROGRESS NOTE ---
DATE: 12/09/2018 SUBJECTIVE: The patient still has a nasty productive cough. Sinuses are still draining. Waiting for a oxygen approval. I spoke to Dr. Penaloza. Unfortunately, it has been reported squamous cell carcinoma. EXAM: Vital Signs: Temperature is 98 degrees. Vitals are stable. He is on oxygen. Chest: Clear. Heart: Sounds are regular. The rest of the exam is benign. ASSESSMENT AND PLAN: 1. Acute chronic obstructive pulmonary disease exacerbation. 2. Chronic sinusitis due to Pseudomonas aeruginosa. Currently, qualified for home oxygen. He needs outpatient antibiotics for Pseudomonas coverage, which he is sensitive to Levaquin. 3. 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 Waiting for a PET scan tomorrow. Will follow up with Dr. Corona. 4. Nicotine abuse. Quit smoking. 5. Coronary artery disease. Stable. 6. For pain control in the meantime, we will give Ultracet 1 tablet p.o. q.6. We will attempt to discharge in the morning. Also, needs vaccination protocol, which is up-to-date on flu and pneumococcal 13. 7. Discussed the plan of care with the family at bedside. LEVEL OF DOCUMENTATION: 25 minutes. cc: Blake Nation MD
[2018-12-10] MEDS: ZITHROMAX 500 MG/NS 500 MG/250 ML IVPB IV SCH (02:19)
[2018-12-10] MEDS: SOLU-MEDROL IV SCH (02:23)
[2018-12-10] MEDS: DILAUDID IV PRN ×3 (02:25→11:00)
[2018-12-10] MEDS: AYR NASAL SPRAY NAS SCH ×6 (02:30→09:07)
[2018-12-10] MEDS: DUONEB (A & A) INH SCH ×2 (03:00→08:00)
[2018-12-10] MEDS: SPIRIVA INH SCH (07:59)
[2018-12-10] MEDS: BREO ELLIPTA 100/25 MCG INH INH SCH (07:59)
[2018-12-10 08:10] VITALS: BP 125/66
[2018-12-10] MEDS: ASPIRIN PO SCH (09:08)
[2018-12-10] MEDS: MAXIPIME 1 GM in NS 50 ML IV SCH (09:08)
[2018-12-10] MEDS: NICODERM PATCH TD SCH (09:09)
[2018-12-10] MEDS: MIRALAX PO SCH (09:09)
--- NOTE | 2018-12-11 18:06 | DISCHARGE SUMMARY ---
ADMISSION DATE: 11/30/2018 DISCHARGE DATE: 12/10/2018 DISCHARGING DIAGNOSIS: 1. Acute chronic obstructive pulmonary disease exacerbation due to Pseudomonas aeruginosa infection. 2. Acute maxillary sinusitis due to Pseudomonas status post drainage by Dr. Santacruz. 3. Chronic tobacco abuse. 4. Coronary artery disease status post bypass surgery. 5. History of gout, glucose intolerance, nicotine dependency, vitamin B12 deficiency, peripheral vascular disease, bilateral superficial femoral artery stenosis. 6. Sleep apnea status post uvulopalatopharyngoplasty. 7. Right lung nodule stable since November 2017, biopsy was negative. 8. 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 CONSULT: 1. Dr. Corona, Dr. Santacruz. 2. Dr. Marlon Demarco. PROCEDURES: CT-guided biopsy of the left upper lobe reported as non-small cell squamous cell carcinoma differentiated. BRIEF HISTORY: Please see the H and P that was done by hospitalist on 11/30/2018. In brief he is a 73-year-old white gentleman recently had a sinus surgery due to pus and with chronic infection subsequently grew Pseudomonas aeruginosa sensitive to all antibiotics. Came in with shortness of breath, hypoxemia, wheezing. HOSPITAL COURSE: He was admitted to the hospital for acute COPD exacerbation. Sputum cultures grew Pseudomonas. Patient was given IV cefepime along with Zithromax. He also given bronchodilators. Patient has intractable left interscapular pain. Initial chest x-ray was stable. EKG was negative. Cardiac enzymes were negative. CT scan of the chest showed stable right lower lobe spiculated lesion 21 mm and 2.4 cm lesion pleural based on the left apex. 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 Dr. Corona was consulted. He is arranged the PET scan and based on that further recommendations will be followed. Despite adequate treatment patient continues to hypoxic PO2 55 on room air. Hence he qualify home oxygen. He was advised to quit smoking. Nicotine cessation program was initiated by using Nicotrol patches. At the time of discharge patient is stable. LABS: CBC. White cell count 5, hematocrit 48, platelet count is 113,000, PT 13, INR 0.9. ABG on room air on 12/08/2018 pH is 7.41, pCO2 50, PO2 55 . SMA 7 is normal. Cardiac enzymes, proBNP normal. CEA level 4.5. Sputum cultures grew Pseudomonas aeruginosa. Blood cultures were negative. Patient was discharged home in a stable condition with these instructions. Flu vaccine 08/26/2018, pneumococcal vaccine 13 on 12/04/2017, oxygen 2 L and Nicotrol patches for cessation program, continue on aspirin 81 mg daily, Levaquin 500 daily for 2 weeks, Ultracet 1 tablet q.6 p.r.n. pain, Breo 1 puff daily, Lipitor 20 daily, Spiriva 1 puff daily. Follow up with Dr. Corona for PET scan and further opinion as well as Dr. Santacruz. cc: Christiano Santacruz MD
== END 2018-12-10 11:23 | disposition home or self-care (01) | DRG 181 ==
LOC: ED 22:14 → EDIPHOLD 11-30 07:40 → 3N 11-30 15:10
PROVIDERS: ADMIT Internal Medicine; ATTEND Internal Medicine
CPT/HCPCS: 32405; 71010; 71020; 71045; 71046; 71260; 72052; 77012; 80048; 80053; 82378; 82550; 82805; 83605; 83880; 84484; 85025; 85379; 85610; 85730; 87040; 87070; 87077; 87186; 87205; 88305; 93005; 94640; 94760; 94761; 94799; 96365; 96375; 99285; A9270; J0456; J0692; J0696; J1170; J1885; J2270; J2920; J7506; J7512; Q9967

== ENCOUNTER 2019-03-21 16:40 | Inpatient (IN) ==
[2019-03-21] MEDS ORDERED: ASPIRIN PO ONE (16:54)
[2019-03-21 17:05] LABS: BASO# 0.03 X1000 (0.0-0.2); BASO% 0.4 % (0.0-0.8); EOS# 0.32 X1000 (0.0-0.7); EOS% 4.5 % (0.0-10.0); HEMATOCRIT 45.9 % (42.0-52.0); HEMOGLOBIN 14.7 g/dL (14.0-18.0); LYMPH# 1.96 X1000 (1.2-3.4); LYMPH% 27.7 % (20.5-51.1); MCH 28.6 PG (27-31); MCV 89.3 FL (81-99); MONO# 0.64 X1000 (0.11-0.59); MONO% 9.1 % (1.7-9.3); MPV 10.9 FL (7.4-10.4); NEUT# 4.12 X1000 (1.4-6.5); NEUT% 58.3 % (42.2-75.2); PLT 158 X1000 (130-400); RBC 5.14 XMIL (4.7-6.1); RDW 14.7 % (11.5-14.5); WBC 7.07 X1000 (4.8-10.8)
[2019-03-21] MEDS ORDERED: NORCO-10 PO ONE (17:13)
[2019-03-21] MEDS ORDERED: ANTIVERT PO ONE (17:13)
--- NOTE | 2019-03-21 17:13 | PROVIDER DOCUMENTATION ---
HPI-Cardiac General - General Chief Complaint: Chest Pain Stated Complaint: CP,SOB,DIZZINESS Time Seen by Provider: 03/21/19 16:57 Source: patient, family Allergies/Adverse Reactions: Patient Allergies Allergy/AdvReac Type Severity Reaction Status Date / Time Penicillins Allergy Unknown Verified 03/21/19 18:26 Home Medications: Home Medication List Medication Instructions Recorded Confirmed Last Taken Type Atorvastatin Calcium [Lipitor] 20 mg PO DAILY #90 tab 08/26/18 11/30/18 Unknown Rx Fluticasone/Vilanterol [Breo 1 ea IH DAILY #1 aer.pow.ba 08/26/18 11/30/18 Unknown Rx Ellipta Inhaler] Tiotropium [place] Inhaler 1 puff INH RTDAILY #30 inhaler 08/26/18 11/30/18 Unknown Rx [Spiriva] Aspirin 81 mg PO DAILY 11/30/18 11/30/18 11/30/18 History Levofloxacin [Levaquin] 500 mg PO DAILY #14 tab 12/10/18 Unknown Rx Tramadol/APAP [Ultracet 1 ea PO Q6H PRN PRN #30 tab 12/10/18 Unknown Rx 37.5MG/325Mg] - History of Present Illness-Cardiac Nature of Presenting Problem: reports a sudden vertigo this morning, brief second, to minutes. associated with nausea, no vomiting. no decreased appetite, no slurred speech, focal weakness. has history of recent myringotomy tubes placement b/l. and recent tumor removal of his left chest. chest pain is sharp shooting across from his chest, lasts 15 to 20 mins intermittent. associated with sob but stats that he has copd on Oxygen at night. stilll smoking. minor cough which has been there for awhile. no fever. states that 4 years ago he had the triple bypass and he did not have cp. Review of Systems - Adult - REVIEW OF SYSTEMS - ADULT Constitutional: reports: no symptoms reported Eyes: reports: no symptoms reported Ears, Nose, Mouth & Throat: reports: no symptoms reported Cardiovascular: reports: no symptoms reported Respiratory: reports: no symptoms reported Gastrointestinal: reports: no symptoms reported Genitourinary: reports: no symptoms reported Musculoskeletal: reports: no symptoms reported Integumentary: reports: no symptoms reported Neurological: reports: no symptoms reported Psychiatric: reports: no symptoms reported Endocrine: reports: no symptoms reported Hematologic/Lymphatic: reports: no symptoms reported Allergic/Immunologic: reports: no symptoms reported All Other Systems: Reviewed and Negative Past History - Adult - PAST MEDICAL HISTORY-ADULT Review of Records: reports: Old Records Reviewed, Nursing Assessment Review, Medications Reviewed, Social history reviewed & non-contributory. Major Childhood Illnesses: reports: denies history Cardiovascular: reports: A-Fib, CAD, hyperlipidemia Respiratory: reports: COPD Gastrointestinal: reports: denies history Obstetrical/Gynecological: reports: denies history Genitourinary: reports: denies history Musculoskeletal: reports: denies history Neurological: reports: denies history Endocrine/Immune: reports: denies history Other Conditions: reports: denies history - PRIOR SURGERIES/PROCEDURES Surgical/Procedure History: reports: CABG (04/2015), other (deviated septum) - IMMUNIZATION STATUS Childhood Immunizations: See Nurse Assessment Flu Vaccine: See Nurse Assessment - FAMILY HISTORY Family History: reviewed, not pertinent - SOCIAL HISTORY Smoking: less than 1 pack/day Provider spent 3-5 mins advising pt. on dangers of tobacco.: Discussed manners to quit use, and f/u contacts for add'l counseling. Substance Use: none/never Alcohol Use Frequency: never Living Situation: family Physical Exam-General - PHYSICAL EXAM-ADULT Initial Vital Signs Reviewed: Yes - CONSTITUTIONAL General Appearance: appears well, alert, mild distress - EYES Eyes: PERRL/EOMI, pink conjunctivae - HEAD, EARS, NOSE, MOUTH & THROAT HENMT: normocephalic/atraumatic, moist mucous membranes, other (tubes b/l. no drainage) - NECK Neck: non-tender, full range of motion - RESPIRATORY Respiratory: chest non-tender, lungs clear, normal breath sounds - CARDIOVASCULAR Cardiovascular: normal peripheral pulses, bradycardia, other (pain on palpation) - GASTROINTESTINAL (ABDOMEN) Abdominal Exam: normal bowel sounds, non tender, soft - MUSCULOSKELETAL Back Exam: normal inspection, no CVA tenderness, no vertebral tenderness Extremity: normal range of motion, non-tender, normal gait - SKIN Integumentary: normal color, normal turgor, warm/dry - NEUROLOGIC Neurologic: grossly normal, no motor/sensory deficits - PSYCHIATRIC Psych/Mental Status: normal mood/affect, normal thought content, normal thought process, oriented x 3 - HEART Score HEART Score: History: Moderately Suspicious HEART Score: ECG: Non-Specific Repolarization Disturbance/LBBB/PM HEART Score: Age: > or = 65 Years HEART Score: Risk Factors for Atherosclerotic Disease: > or = 3 Risk Factors or History of Atherosclerotic Disease HEART Score: Troponin: < or = Normal Limit Total HEART Score:: 6 Progress - PLAN OF CARE/RESULTS Progress/Plan/Lab Results: Vital Signs - 8 hr 03/21/19 16:47 Temperature 97.7 F Pulse Rate 57 L Respiratory Rate 18 Blood Pressure 160/88 O2 Sat by Pulse Oximetry 93 L Laboratory Results - last 24 hr 03/21/19 03/21/19 03/21/19 16:51 16:51 16:51 WBC 7.07 RBC 5.14 Hgb 14.7 Hct 45.9 MCV 89.3 MCH 28.6 MCHC 32.0 L RDW Std Deviation 14.7 H Plt Count 158 MPV 10.9 H Immature Gran % (Auto) 0.0 Neut % (Auto) 58.3 Lymph % (Auto) 27.7 [place] % (Auto) 9.1 Eos % (Auto) 4.5 Baso % (Auto) 0.4 Immature Gran # (Auto) 0.00 Neut # (Auto) 4.12 Lymph # (Auto) 1.96 [place] # (Auto) 0.64 H Eos # (Auto) 0.32 Baso # (Auto) 0.03 PT INR PTT (Actin FS) Sodium 142 Potassium 3.8 Chloride 100 Carbon Dioxide 30 Anion Gap 12 BUN 11 Creatinine 0.8 Estimated GFR/1.73 m2 > 60 BUN/Creatinine Ratio 14 Glucose 110 H Calculated Osmolality 283 Calcium 9.1 Total Bilirubin 0.44 AST 9 L ALT 7 L Alkaline Phosphatase 62 Creatine Kinase 41 Troponin T Vwn-B-Lvtkpgcolkg Pept 250 H Total Protein 6.5 Albumin 4.2 Globulin 2.3 Albumin/Globulin Ratio 1.8 03/21/19 03/21/19 16:51 16:51 WBC RBC Hgb Hct MCV MCH MCHC RDW Std Deviation Plt Count MPV Immature Gran % (Auto) Neut % (Auto) Lymph % (Auto) [place] % (Auto) Eos % (Auto) Baso % (Auto) Immature Gran # (Auto) Neut # (Auto) Lymph # (Auto) [place] # (Auto) Eos # (Auto) Baso # (Auto) PT 12.7 INR 0.88 PTT (Actin FS) 28.7 Sodium Potassium Chloride Carbon Dioxide Anion Gap BUN Creatinine Estimated GFR/1.73 m2 BUN/Creatinine Ratio Glucose Calculated Osmolality Calcium Total Bilirubin AST ALT Alkaline Phosphatase Creatine Kinase Troponin T < 0.010 Rev-I-Woeyirjiugy Pept Total Protein Albumin Globulin Albumin/Globulin Ratio Orders Category Date Time Status Cardiac Monitoring DIRECTED Care 03/21/19 16:54 Active Orthostatic Vital Signs NOW Care 03/21/19 17:19 Active Oxygen Therapy- ED Nursing DIRECTED Care 03/21/19 16:54 Active Saline Loc NOW Care 03/21/19 16:54 Active CHEST-2 VIEWS [RAD] Stat Exams 03/21/19 16:[address] HEAD W/O CONTRAST [CT] Stat Exams 03/21/19 17:00 Completed CBC WITH ELECTRONIC DIFF [HEME] Stat Lab 03/21/19 16:51 Completed CK PROFILE [SP CHEM] Stat Lab 03/21/19 16:51 Completed CK PROFILE [SP CHEM] Stat Lab 03/21/19 20:44 Received COMPREHENSIVE METABOLIC PANEL [CHEM] Stat Lab 03/21/19 16:51 Completed PRO B-NATRIURETIC PEPTIDE Stat Lab 03/21/19 16:51 Completed PROTIME WITH INR [COAG] Stat Lab 03/21/19 16:51 Completed PTT [COAG] Stat Lab 03/21/19 16:51 Completed TROPONIN T Stat Lab 03/21/19 16:51 Completed TROPONIN T Stat Lab 03/21/19 20:44 Received Aspirin Med 03/21/19 16:54 Discontinued 325 mg PO NOW ONE Hydrocodone/APAP 10 mg/325 mg [[place]-10] Med 03/21/19 17:13 Discontinued 1 each PO NOW ONE Meclizine [Antivert] Med 03/21/19 17:13 Discontinued 25 mg PO NOW ONE CP/SOB/Palp >45 yrs of Age Stat Oth 03/21/19 16:54 Ordered EKG [EKG] Stat Ther 03/21/19 16:54 Ordered EKG [EKG] Stat Ther 03/21/19 19:04 Ordered Result Diagrams: 03/21/19 16:51 03/21/19 16:51 - EKG 1 Time of EKG reading by physician:: 16:58 EKG Read and Signed by:: Leatha De Santiago Rate: 57 Rhythm: Sinus gen w/ pvc Alden: normal - CONSULTS/PCP/HOSPITALIST Notification #1 *Consult/PCP/Hospitalist*: Dr. Akisoto Consult Disposition: Admit (acs r/o, vertigo) Departure - Departure Date of Disposition Decision: 03/21/19 Time of Disposition Decision: 20:16 DIAGNOSIS: Tobacco use disorder, Vertigo, ACS (acute coronary syndrome), Bradycardia Disposition: ADMITTED INPATIENT 09 Certified Medical Emergency: Emergent Condition: Stable Referrals and Follow-Ups: Pankaj Nation MD [Primary Care Provider] - - Critical Care Note This patient required my direct & personal management of CC.: No Attestation - Physician/ NELLIE Attestation The physician spent face to face time with patient:: Yes Advanced Practice Provider documentation review:: Supervising physician onsite and consulted in the evaluation and care of this patient. The physician did have a face to face encounter with the patient.
[2019-03-21 17:18] LABS: INR 0.88; PROTIME 12.7 Seconds (11.0-16.0)
[2019-03-21 17:20] LABS: PTT 28.7 Seconds (22.3-41.8)
[2019-03-21 17:28] LABS: AGAP 12; ALB/GLOB RATIO 1.8; ALBUMIN 4.2 g/dL (3.5-5.0); ALKALINE PHOSPHATASE 62 U/L (32-122); BUN 11 mg/dL (8-22); CALCIUM 9.1 mg/dL (8.8-10.2); CHLORIDE 100 mmol/L (98-107); CK PROFILE 41 U/L (24-204); COSMO 283; CREATININE 0.8 mg/dL (0.7-1.2); ESTIMATED GFR > 60; GLUCOSE 110 mg/dL (70-104); GOT 9 U/L (10-34); GPT 7 U/L (10-44); POTASSIUM 3.8 mmol/L (3.5-5.1); SODIUM 142 mmol/L (136-145); TCO2 30 mmol/L (25-35); TOTAL BILIRUBIN 0.44 mg/dL (0.20-1.00); TOTAL PROTEIN 6.5 g/dL (6.3-8.3)
--- NOTE | 2019-03-21 17:42 | Diag Imaging Result Doc PS360 ---
EXAM: CHEST-2 VIEWS INDICATION: chest pain TECHNIQUE: 2 views COMPARISON: 12/07/2018 FINDINGS: The known nodule in the right midlung zone is stable. There is stable linear scarring at the lung bases, more prominent on the left. The lungs are grossly clear, otherwise. There is no discrete pleural fluid collection or pneumothorax. The cardiomediastinal silhouette and central vasculature are grossly unremarkable. IMPRESSION: Stable chest with no definite acute pathology by plain radiograph. Electronically signed by Olu Healy 03/21/2019 5:39 PM
--- NOTE | 2019-03-21 18:50 | Diag Imaging Result Doc PS360 ---
EXAM: CT HEAD W/O CONTRAST INDICATION: cva TECHNIQUE: This exam was performed using automated exposure control, adjustment of mA or kV according to patient size, and/or use of iterative reconstruction technique. COMPARISON: None. FINDINGS: There is no definite acute infarct given the limited sensitivity of CT versus MRI. There is no discrete intracranial mass, mass effect, or intracranial hemorrhage. There is a trace right mastoid air cell effusion and there is chronic mild maxillary sinus mucosal thickening. Surrounding soft tissues and bony structures are essentially unremarkable, otherwise. IMPRESSION: No evidence of acute intracranial pathology. Electronically signed by Olu Healy 03/21/2019 6:47 PM
[2019-03-21] MEDS ORDERED: NITROGLYCERIN SL ONE (21:09)
--- NOTE | 2019-03-22 00:19 | HISTORY AND PHYSICAL ---
PRIMARY CARE PHYSICIAN: Blake Nation MD. REASON FOR ADMISSION: Chest pain and with lightheadedness today. HISTORY OF PRESENT ILLNESS: Mr. Darell Pérez is a 73-year-old male with a recent diagnosis of lung cancer status post lobectomy 5 weeks ago. He also has a history of COPD, coronary artery disease status post three-vessel coronary bypass, metabolic syndrome, gout, peripheral vascular disease, B12 deficiency. He also has a history of hyperlipidemia. The patient comes in today complaining of a 1-month history of intermittent left chest wall soreness. Today, however, things took a turn for the worse when he noted that he woke up feeling lightheaded with the aforementioned chest pain. He also complains of some intermittent vertigo in addition to the feeling of lightheadedness. He denies any otalgia, tinnitus, hearing loss, or any focal numbness, tingling or weakness. He states that the left soreness he has been experiencing is localized and nonradiating, as a matter of fact he even thinks it is related to where he had his left lobectomy done. The patient denies any palpitations, denies any PND or orthopnea. He has had a longstanding chronic cough which has not worsened. No fever or chills. No leg swelling. He also denies any GI or complaints. He cannot recall when he has had any cardiovascular intervention for years. No diaphoresis. No nausea or vomiting or any other anginal symptoms. No polyuria or polydipsia. No new arthralgias or rash. REVIEW OF SYSTEMS: Twelve system review was done. Positive findings per HPI. ALLERGIES: Penicillin. HOME MEDICATIONS: Are reconciled. SURGICAL HISTORY: He has had a left lobectomy. He has had UVP plasty. He had septoplasty. He has had a CABG. He has had a right lung biopsy. He has had a right knee replacement. He had a recent sinus surgery early this year. SOCIAL HISTORY: He is . He smokes about 1-2 packs a day. No alcohol use or drug use. FAMILY HISTORY: Negative for diabetes. Positive for heart disease in first-degree relatives. LABORATORY WORK: White count 7000, H H 14 and 45, platelets 158,000. Normal differential. BUN 11, creatinine 0.8, glucose 110. Two sets of troponin negative. ProBNP 250. PT/PTT is normal. A chest film shows a nodule in the right middle lung zone which is stable, scarring in the bases noted. No acute pathology noted. Head CT was also done. No acute intracranial process noted. EKG was ordered and showed sinus bradycardia with intermittent PVCs, normal axis. PHYSICAL EXAMINATION: VITAL SIGNS: Blood pressure 160/80, heart rate 57, respirations 18, temperature is 97.7 degrees. He is 93% on room air. GENERAL: He is a morbidly obese man who is alert and oriented to person and time with normal mood and affect. HEENT: Head is normocephalic and atraumatic. Eyes: AMBER. EOMI. He is anicteric and not pale. ENT and oropharyngeal exam is grossly normal except she has a Mallampati stage IV oropharynx. There is some cyanosis. NECK: Short and thick. No JVD or carotid bruit. No thyromegaly. CHEST: Decreased entry in both lung zacarias with expiratory wheezes both lungs. CARDIOVASCULAR: First and second heart sounds heard. No gallops, murmurs, or rubs. The patient has regular skipped beats. ABDOMEN: Protuberant, soft. Normal bowel sounds. No masses or organomegaly. RECTAL: Deferred. EXTREMITIES: The patient has no edema, clubbing or peripheral cyanosis. Distal pulses are regular with also regular skipped pauses occurring after every 2 beats. No clubbing or peripheral cyanosis. NEUROLOGIC: No gross focal deficits. SKIN: Intact. No breakdown, lesions or erythema except for scar in the lower left lung base of his recent lobectomy. MUSCULOSKELETAL: Exam is grossly normal. ASSESSMENT: 1. Chest pain somewhat atypical in a patient with documented coronary artery disease. 2. Mild chronic obstructive pulmonary disease exacerbation. 3. Lung cancer. 4. Hyperlipidemia. 5. Hypertension PLAN: The patient will be admitted for cardiovascular workup. We will do serial cardiac enzymes, consult Cardiology to see. I surmise that this is somewhat atypical; however, due to his risk factors and his documented heart disease I think it would be prudent to at least do a noninvasive evaluation, which a consultation has been done in a while. I do believe most of this is either musculoskeletal or respiratory. The patient's CT scan is a little worrisome because of a nodule in the mid zone, and he has a lot of scarring and we will order a CT scan to evaluate his lungs most especially since he has had a recent resection for lung cancer. The patient states that they did not get in "all the cancer." It will be will be nice to rule out possible pneumonia that is less likely. Breathing treatments will be given short-acting, but consider long-acting breathing treatments if the need for frequent short-acting nebulizers is noted. cc: MD Blake Leong MD
[2019-03-22] MEDS ORDERED: TYLENOL PO PRN (00:57)
[2019-03-22] MEDS ORDERED: ZOFRAN IV PRN (00:57)
[2019-03-22] MEDS: LOVENOX SUBQ SCH ×2 (02:18→23:56)
[2019-03-22] MEDS: NITROGLYCERIN TOP SCH ×4 (02:18→23:56)
[2019-03-22] MEDS: DUONEB (A & A) INH SCH ×4 (03:56→22:00)
[2019-03-22] MEDS: PRILOSEC PO SCH (06:48)
--- NOTE | 2019-03-22 08:00 | EKG Report ---
Test Performed on : 03/22/2019 06:58:17 AM Test Reason : Cp Blood Pressure : / mmHG Vent. Rate : 056 BPM Atrial Rate : 056 BPM P-R Int : 156 ms QRS Dur : 084 ms QT Int : 408 ms P-R-T Axes : 034 036 092 degrees QTc Int : 393 ms Sinus bradycardia. with premature atrial complexes. Nonspecific T wave abnormality Abnormal ECG When compared with ECG of 21-MAR-2019 16:46, (Unconfirmed) Nonspecific T wave abnormality now evident in Anterior leads QT has shortened Confirmed by Jayjay ADAIR, Rigoberto Degroot ([id number]) on 03/22/2019 9:19:38 AM
[2019-03-22 08:06] LABS: AGAP 12; BUN 8 mg/dL (8-22); CALCIUM 8.8 mg/dL (8.8-10.2); CHLORIDE 101 mmol/L (98-107); CHOLESTEROL 167 mg/dL (0-200); COSMO 278; CREATININE 0.7 mg/dL (0.7-1.2); ESTIMATED GFR > 60; GLUCOSE 106 mg/dL (70-104); HDL 33 mg/dL (35-55); LDL 102 mg/dL; POTASSIUM 4.2 mmol/L (3.5-5.1); SODIUM 140 mmol/L (136-145); TCO2 27 mmol/L (25-35); TRIGLYCERIDES 160 mg/dL (39-160); VLDL 32 mg/dL
--- NOTE | 2019-03-22 08:15 | EKG Report ---
Test Performed on : 03/21/2019 4:46:28 PM Test Reason : chest pain Blood Pressure : / mmHG Vent. Rate : 057 BPM Atrial Rate : 057 BPM P-R Int : 146 ms QRS Dur : 088 ms QT Int : 462 ms P-R-T Axes : 005 002 078 degrees QTc Int : 449 ms Sinus bradycardia. with premature atrial complexes. Nonspecific T wave abnormality Abnormal ECG When compared with ECG of 29-NOV-2018 23:29, premature atrial complexes. are now present Unconfirmed Result
[2019-03-22] MEDS ORDERED: ASPIRIN PO SCH (09:00)
[2019-03-22] MEDS ORDERED: LIPITOR PO SCH (09:00)
[2019-03-22] MEDS: DILAUDID IV PRN ×4 (09:50→21:18)
[2019-03-22] MEDS: ASPIRIN PO SCH (09:51)
--- NOTE | 2019-03-22 10:32 | Diag Imaging Result Doc PS360 ---
EXAM: CT THORAX W/CONTRAST 03/22/2019 HISTORY: CP dyspnea recent lung resection TECHNIQUE: This exam was performed using automated exposure control, adjustment of mA or kV according to patient size, and/or use of iterative reconstruction technique. COMMENT: There is emphysematous change in the upper lobes. There is a pleural-based spiculation in the posterior left upper lobe. There are surgical clips and suture lines in this area which are probably related to the lung resection described in the history. There is some loculated pleural fluid and thickening posteriorly on the left side. There are platelike opacities in the lower lobe which may be due to fibrosis and there is a bleb in the lower lobe which has not changed particularly since the previous study of 12/03/2018. There are also pleural-based fibrotic opacities in the lingula which are similar to the previous examination. There is a spiculated nodule present in the inferior portion of the right upper lobe which was also present at the time the previous examination. This is irregular in shape but is far as can be determined is slightly larger than on the previous examination measuring 3.4 cm in greatest AP dimension compared to 2.9 cm previously. It measures 1.9 cm in transverse dimension compared to 10 mm previously. There are some scattered granulomata in the middle lobe and upper lobe with calcified nodes in the right hilum. There is no evidence of significant adenopathy. There is a cyst in the anterior mediastinal on image 47 which was also present previously. The prevascular node which was present on the previous examination on image 55 and the current study on image 56 has not changed significantly and measures approximately 13 mm. There is a small noncalcified nodule in the right upper lobe on image 47 measuring 5 mm in AP dimension. This has increased in size since the previous examination at which time it measured slightly over 4 mm. IMPRESSION: 1. Apparent postsurgical changes on the left. 2. Enlarging right upper lobe nodules. Electronically signed by Marlon Demarco 03/22/2019 10:30 AM
--- NOTE | 2019-03-22 18:42 | CARDIOLOGY CONSULTATION ---
DATE: 03/22/2019 CHIEF COMPLAINT: Vertigo. HISTORY: Mr. Pérez is a 73-year-old male who presented to the emergency room yesterday for evaluation because apparently since early in the morning of March 21 he noted intense vertigo. This is subjective, feeling like the room is spinning around his head. It was a rather intense, did not seem to get any better, and ended up in the ER about 4:54 p.m. Somehow, they got the history from him that he was having some pain in the chest, which it is obviously related to a surgical incision that was performed within the past 2 months for removal of lung cancer on the left side of the chest. The patient states that he has had that pain ever since the surgery and he has had episodes of waxing and waning. He clearly states that at the time of his open-heart surgery he was not having any chest pains. His main symptom at that time was fatigue, tiredness, and subsequently a positive stress test. The patient was seen by Dr. Espinal prior to his thoracotomy in December of this year for clearance. He did not find any changes in the patient's cardiovascular status at that time. The patient at this time says that last night he was given some medication in the ER that appeared to make things better and the dizziness or vertigo is not as intense this morning. An EKG was done in the ER that shows sinus bradycardia, rate 57 beats per minute with a pattern of old inferior scar, minor nonspecific ST change in the limb leads 1 and aVL. His cardiac enzymes have been checked 4 times. They are all negative. ProBNP is 250 pg/ml . Normal is 229 for his age. His LDL cholesterol 102, total cholesterol 167, HDL 23, triglycerides 160. They did a chest x-ray that shows no definite acute pathology. However, a chest CT indicates apparent postsurgical changes on the left side and enlarging right upper lobe nodules. PAST MEDICAL HISTORY: Positive for severe coronary heart disease, stable angina pattern. He has peripheral vascular disease. He has COPD, dyslipidemia. PAST SURGICAL HISTORY: He just underwent a left thoracotomy in [place] under the services of Dr. Scar Guzmán on January 27, 2019. They resected a lung cancer. I do not have the specifics of the pathology or what else was planned following the resection. History is also positive for chronic otitis. He has required tubes in both ears. He has had deviated septum repair. Triple coronary bypass procedure on February 28, 2015, performed by Dr. Ochoa on that day including mammary graft to LAD, vein graft to diagonal, and vein graft to marginal branch of circumflex. SOCIAL HISTORY: He is . 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 He has been retired for about 10 years or so. He has grown-up children. The patient has been a heavy smoker for many years and in spite of the fact that he has had cancer and open- heart surgery, he is still smoking about 3/4 of a pack a day. HOME MEDICATIONS: At the time of this admission include aspirin, atorvastatin, fluticasone, tramadol. ALLERGIES: Penicillin. REVIEW OF SYSTEMS: The patient has significantly impaired exercise capacity. He does very little at home. He gets short of breath easily. He has not experienced any changes in his chest symptoms, other than recurrent left-sided chest pain related to his recent thoracotomy. No other positives on the multiple systems interrogation. PHYSICAL EXAMINATION: Vital signs: Blood pressure 147/65, pulse 61, temperature 97.9 degrees, respirations 18. General: The patient is awake, alert, oriented, in no distress. HEENT: Unremarkable. Chest: Significantly diminished breath sounds, especially in the left lung. There is obvious scar of thoracotomy in the left side of the chest. Heart: Sounds are regular, rhythmic. No gallop or murmur. Abdomen: Nontender, soft. No masses. No hepatomegaly. Extremities: Show very good distal pulses. Neurological: Follows commands. Moves 4 extremities. BLOOD WORK: Sodium 140, potassium 4.2, BUN 8, creatinine 0.7. Hemoglobin is 14.7. IMPRESSIONS: 1. Patient who presents with essentially objective vertigo. This may represent inflammation or irritation of the vestibular system, Meniere disease, or one of those related conditions. 2. Noncardiac chest pain on the left side of the chest related to recent thoracotomy to excise a lung cancer. 3. Severe coronary heart disease, previous triple bypass surgery in 2014 with a stable pattern of angina pectoris. 4. History of hypertension. 5. Persistent tobacco abuse. RECOMMENDATION: I would recommend to obtain a consultation with ENT since his symptoms have nothing to do with the cardiovascular system. Cardiac-cody, he is in my opinion perfectly stable and he needs to continue his current medications, quit smoking, and follow up with his regular physician, who in this case is stated to be Dr. Nation. cc: MD Blake Estevez MD MTDD
--- NOTE | 2019-03-22 21:43 | PROGRESS NOTE ---
DATE: 03/22/2019 SUBJECTIVE: A 73-year-old, white gentleman, admitted to the hospital last night with chest pain, lightheadedness, dizziness. The patient has a history of coronary artery disease, recently had left upper pole nodule spiculated. Had a wedge resection done in [place]. Apparently, margins were positive, waiting for radiation. Patient is in a lot of pain. PAST MEDICAL HISTORY: Reviewed. PAST SURGICAL HISTORY: Reviewed. MEDICATIONS: Reviewed. ALLERGIES: Penicillin. PHYSICAL EXAMINATION: Vital Signs: On examination, temperature is 97, pulse 73, blood pressure is stable, 94% on room air. HEENT: Within normal limits. Neck: Supple. No lymphadenopathy. Chest: Bilateral wheezing. Heart: Sounds are regular. Abdomen: Belly is soft, obese, nontender. Good bowel sounds. Neurologic: No neurological deficits. INVESTIGATIONS: CBC: White cell count 7, hematocrit 45.9, platelets 158. PT 12. INR 0.8. SMA- 7 is normal. Cardiac enzymes were negative. ProBNP 250 and triglycerides 160, LDL is 102. 1. Chest CT reported apparently postsurgical changes in the left, enlarging left upper lobe nodules. 2. CT head no evidence of acute intracranial pathology. 3. Chest x-ray, stable chest. ASSESSMENT AND PLAN: 1. A 73-year-old white male admitted to the hospital with chest pain, noncardiac. EKG, cardiac enzymes were negative. 2. Status post left thoracotomy for left upper lobe nodule. Margins are positive. Waiting for radiation. 3. Hyperlipidemia on Lipitor. 4. Deep vein thrombosis prophylaxis with Lovenox. 5. Gastrointestinal prophylaxis with Prilosec. 6. Appreciated Dr. Rubin consult. I am going to review the chest CT with radiologist. 7. Hydromorphone for pain. 8. 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 9. Coronary artery disease status post bypass surgery. 10. History of gout, stable. 11. Glucose intolerance stable. 12. B12 deficiency. Continue B12 replacement b.i.d. 13. Bilateral superficial femoral artery stenosis, stable. 14. History of sleep apnea, status post uvulopalatopharyngoplasty. 15. I am going to coordinate the care with Dr. Corona and will follow up. LEVEL OF DOCUMENTATION: 35 minutes. cc: Blake Nation MD
[2019-03-23] MEDS: DILAUDID IV PRN ×7 (01:25→21:09)
[2019-03-23] MEDS: DUONEB (A & A) INH SCH ×4 (03:54→21:33)
[2019-03-23] MEDS: PRILOSEC PO SCH (06:24)
[2019-03-23] MEDS: ASPIRIN PO SCH (08:02)
[2019-03-23] MEDS: LIPITOR PO SCH (08:02)
[2019-03-23] MEDS: NITROGLYCERIN TOP SCH ×2 (08:03→17:20)
[2019-03-23] MEDS: SPIRIVA INH SCH (11:21)
[2019-03-23] MEDS: BREO ELLIPTA 100/25 MCG INH INH SCH (11:21)
[2019-03-23] MEDS ORDERED: ANTIVERT PO ONE (20:15)
--- NOTE | 2019-03-23 21:32 | PROGRESS NOTE ---
DATE: 03/23/2019 SUBJECTIVE: The patient complains of vertigo, also postop chest pain. PHYSICAL EXAMINATION: Vital Signs: Temperature is 97 degrees, pulse is 63, blood pressure is stable, and he has a positive Baranay's test Chest: Thoracotomy scar noted. Chest is clear. Heart: Sounds are regular. INVESTIGATIONS: Cardiac enzymes were negative. ASSESSMENT AND PLAN: 1. Chest pain, musculoskeletal pain. 2. Status post left squamous cell carcinoma, partially resected. Waiting for radiation on 04/09/[address] Burdick. 3. Right upper lobe nodule, 3.3 cm, stable. Waiting for PET scan. 4. Vertigo due to inner ear. Will use the meclizine. 5. If he is stable, will discharge in the morning and will follow up. LEVEL OF DOCUMENTATION: 25 minutes. cc: Blake Nation MD MTDD
[2019-03-24] MEDS: NITROGLYCERIN TOP SCH ×2 (00:52→09:29)
[2019-03-24] MEDS: LOVENOX SUBQ SCH (00:53)
[2019-03-24] MEDS: DILAUDID IV PRN ×3 (01:40→09:35)
[2019-03-24] MEDS: DUONEB (A & A) INH SCH ×2 (03:37→10:15)
[2019-03-24] MEDS: PRILOSEC PO SCH (06:12)
[2019-03-24 08:02] VITALS: BP 126/72
[2019-03-24] MEDS ORDERED: ANTIVERT PO SCH (09:00)
[2019-03-24] MEDS: ASPIRIN PO SCH (09:28)
[2019-03-24] MEDS: LIPITOR PO SCH (09:28)
[2019-03-24] MEDS: SPIRIVA INH SCH (10:15)
[2019-03-24] MEDS: BREO ELLIPTA 100/25 MCG INH INH SCH (10:16)
--- NOTE | 2019-03-26 22:20 | DISCHARGE SUMMARY ---
ADMISSION DATE: 03/21/2019 DISCHARGE DATE: 03/24/2019 DISCHARGING DIAGNOSES: 1. Dizziness and vertigo due to inner ear. 2. Recurrent sinusitis due to Pseudomonas. 3. Chronic obstructive pulmonary disease. 4. Chronic tobacco abuse. 5. Coronary artery disease status post bypass surgery. 6. Gout. 7. Glucose intolerance. 8. Vitamin B12 deficiency. 9. Nicotine dependency. 10. Peripheral vascular disease at bilateral superficial femoral artery stenosis. 11. History of sleep apnea status post uvulopalatopharyngoplasty. 12. Right lung nodule, stable, about 3.1 cm, spiculated. Biopsy was negative. 13. Left upper lobe nodule, squamous cell carcinoma status post thoracotomy, and the margins were positive. CONSULTS: Dr. Rubin. BRIEF HISTORY: Please see the H and P that was done by hospitalist. In brief, he is a 73-year- old white male, recently had a left thoracotomy for pleural-based skin lesion, squamous cell carcinoma was excised in [place]. Unfortunately, biopsy showed margins were positive. The patient has been referred to Dr. Burdick for the radiation therapy. In the meantime, he had some chest pain and vertigo. He was admitted to the hospital for follow-up. HOSPITAL COURSE: 1. The dizziness and vertigo is due to inner ear. He has a positive Barany's test. He was given meclizine. 2. He has a postop pain from thoracotomy scar. Given some Dilaudid. He was ruled out for NV by serial cardiac enzymes. This is a noncardiac pain. The patient was stable at the time of discharge. LABS: As follows, CBC: White cell count 7, hematocrit 45, platelets 158,000. PT 12.7, PTT 28. SMA-7 is normal. LFTs were normal. Cardiac enzymes were negative. ProBNP 250. Triglycerides 160, cholesterol 167, LDL 102. RADIOLOGY PROCEDURE: 1. Chest CT showed, apparently, postsurgical changes on the right upper lobe nodule about the same size, 3.[address] head no evidence of acute intracranial pathology. DISCHARGE INSTRUCTIONS: 1. He needs outpatient PET scan, and also radiation, as per Dr. Burdick. 2. Spiriva 1 puff daily, Lipitor 20 daily, Breo 1 puff daily, aspirin 81 mg daily, Ultracet 1 tablet q.6 p.r.n. pain, meclizine as needed for dizziness. 3. Follow up in my office in 10 days. cc: MD Xavier Kearns MD Traci C. McCormick, MD Benjamin W. Light, MD
== END 2019-03-24 10:40 | disposition home or self-care (01) | DRG 149 ==
LOC: ED 16:40 → 3N 16:40 → SUATTDRO 23:29 → OBSVTOIN 23:29 → 3N 03-23 12:05
PROVIDERS: ADMIT Internal Medicine; ATTEND Internal Medicine
CPT/HCPCS: 70450; 71020; 71046; 71260; 80048; 80053; 80061; 82550; 83880; 84484; 85025; 85610; 85730; 93005; 93010; 94640; 94761; 99285; A9270; J1170; J1650; Q9967